=== PATIENT | female | born 1970 | race Hispanic/Latino ===

== ENCOUNTER 2018-07-08 08:04 | Day surgery (SDC) | payer OTHER ==
[2018-07-08 09:34] LABS: Hematocrit 40.2 % (30.3-42.9); Hemoglobin 13.7 gm/dl (10.1-14.3); Mean Corpuscular HGB Conc 34 % (30-34); Mean Corpuscular Volume 86 fl (79-97); Platelet Count 239 K/mm3 (140-440); Red Blood Count 4.68 M/mm3 (3.65-5.03); Red Cell Distribution Width 12.6 % (13.2-15.2)
[2018-07-08] MEDS ORDERED: SUBLIMAZE IV ONE (11:00)
[2018-07-08] MEDS ORDERED: VERSED IV ONE (11:00)
[2018-07-08] MEDS ORDERED: BENADRYL ONE (12:57)
[2018-07-08] MEDS ORDERED: BENADRYL IV ONE (14:00)
[2018-07-08 14:54] VITALS: BP 131/77
--- NOTE | 2018-07-08 15:01 | Cat Scan Report ---
CT BIOPSY PELVIS/HIP LEFT HISTORY: Right lower quadrant abdominal swelling, Mass, lump. Bilateral pelvic cystic lesions. DESCRIPTION OF PROCEDURE: Informed consent was obtained. Sterile technique was utilized. Moderate sedation was accomplished with Versed, fentanyl and Benadryl. The patient was sedated for 20 minutes. Intraobserver time of 15 minutes. Independent cardiorespiratory monitoring was performed by the RN. Initial scan of the pelvis demonstrated bilateral cystic lesions in the pelvis measuring 9.5 x 6.8 cm on the right side and 6.9 x 4.8 cm on the left side. These lesions have the appearance of simple cysts. No obvious soft tissue component. No calcifications. Using CT guidance, a 5 [place] centesis needle was advanced through the central portions of both cystic lesions. Approximately 130 cc of clear yellowish fluid was aspirated from the left pelvic cyst. 60 cc of fluid was sent to the laboratory for cytology. Approximately 240 cc of clear fluid was aspirated from the right pelvic cyst. 60 cc of fluid was sent to laboratory for cytology. Post procedure scan demonstrated complete evacuation of the cystic lesions. The patient tolerated the procedure without difficulty. IMPRESSION: Successful CT-guided aspiration of bilateral pelvic cysts as outlined above.
== END 2018-07-08 15:35 | disposition home or self-care (01) ==
LOC: CATHLABREC 08:04 → EDSTATUS 08:30 → CATHLABREC 15:35
PROVIDERS: ATTEND Surgery
DX: N94.89 Other specified conditions associated with female genital organs and menstrual cycle (principal); R19.03 Right lower quadrant abdominal swelling, mass and lump; R19.04 Left lower quadrant abdominal swelling, mass and lump; E78.00 Pure hypercholesterolemia, unspecified; K21.9 Gastro-esophageal reflux disease without esophagitis; F32.9 Major depressive disorder, single episode, unspecified; Z98.891 History of uterine scar from previous surgery; Z79.899 Other long term (current) drug therapy; Z98.890 Other specified postprocedural states; Z90.721 Acquired absence of ovaries, unilateral
CPT/HCPCS: 36415; 49083; 85027; 85610; 85730; 88112; J1200; J2250; J3010; 77012